=== PATIENT | female | born 1990 | race Caucasian/White ===

== ENCOUNTER 2020-09-18 06:35 | Outpatient (CLI) | payer OTHER, SELFPAY ==
--- NOTE | ~2020-09-18 | CT_ITS ---
EXAMINATION: CTA brain EXAM DATE: 09/18/2020 07:07 INDICATION: Migraine headaches. TECHNIQUE: Noncontrast head CT. Spiral CT angiogram cerebral arteries performed with intravenous in jection of 100 mL Omnipaque 350. Axial, coronal and sagittal images reviewed. Additional reformatted images created on dedicated 3-D workstation. The dose-length product (DLP) for this examination was 969.01 mGy-cm. The exposure was tailored according to patient size, and iterative reconstruction ( ASIR) was used as additional dose reduction technique. There is no prior study for comparison. FINDINGS: The vertebral arteries are codominant. Intracranial internal carotid arteries are normal. There is no distal carotid or vertebral basilar arterial dissection or fibromuscular dysplasia. Ther e are no cerebral artery aneurysms. There is symmetric cerebral artery arborization. The sagittal, tr ansverse and sigmoid sinuses enhance normally, no venous sinus thrombosis. Internal cerebral veins al so enhance normally. There is no acute intraparenchymal hemorrhage. No evidence of intraparenchymal brain mass lesion. N o evidence of acute infarction. There is no mass effect or midline shift. There is no obstructive hyd rocephalus suspected. There are no extra-axial collections. There are no calvarial acute fractures. IMPRESSION: Unremarkable CTA brain examination. Reviewed, dictated and finalized at location B. TER HELPER
== END 2020-09-18 06:36 | disposition home or self-care (01) ==
PROVIDERS: PCP Nurse Practitioner Family; Visit Provider Psychiatry & Neurology Neurology
DX: G43.909 Migraine, unspecified, not intractable, without status migrainosus (principal)
CPT/HCPCS: 70496; Q9967

== ENCOUNTER 2023-01-04 07:39 | Outpatient (CLI) | payer OTHER, SELFPAY ==
--- NOTE | ~2023-01-04 | XR_ITS ---
MODIFIED ESOPHAGRAM HISTORY: Dysphagia. TECHNIQUE: Modified barium esophagram was performed on 01/04/2023. I administered fluoroscopy and perf ormed the exam with speech pathologist. Patient was seated for lateral fluoroscopic imaging for ulises stion of thin liquids, pudding, solids and quantified amounts, followed by thin liquids in uncontroll ed amounts. This was recorded on tape. A single fluoroscopic spot image was also recorded. The DAP fo r this procedure was 0.343 Gycm2. The amount of fluoroscopy time used during this procedure was 0.5 m inutes. FINDINGS: Oral stage: Adequate function. Pharyngeal stage: Adequate function. Cervical/esophageal stage: Adequate function. IMPRESSION: Normal study. Patient tolerated regular consistency oral feedings in the upright position . Please correlate with speech pathologist findings and specific feeding recommendations. Reviewed, dictated and finalized at location A. UNITY ASSISTANT IMPRESSION: Normal study. Patient tolerated regular consistency oral feedings i n the upright position. Please correlate with speech pathologist findings and specific feeding recommendations.
--- NOTE | ~2023-01-04 | CT_ITS ---
EXAMINATION: CT sinus wo con DATE: 01/04/2023 08:00 INDICATION: Deviated nasal septum TECHNIQUE: Computed tomography (CT) of the paranasal sinuses was performed without intravenous contra st. The dose-length product was 309.35 mGy-cm. Automated exposure control and iterative reconstructio n technique were employed. COMPARISON: CT dated 09/18/2020 FINDINGS: The paranasal sinuses are pneumatized. No significant mucosal thickening or air-fluid level . Rightward nasal septal deviation. Ostiomeatal units are patent bilaterally. Mastoids are pneumatize d. IMPRESSION: 1. No significant paranasal sinus disease. Reviewed, dictated and finalized at location B. D SECURITY GUARD
--- NOTE | 2023-01-04 09:07 | REHSTMBS ---
Assessment and note entered by Anita Villalobos, [employer] Modified Barium Swallow Evaluation Feeding Type Recommended Oral Food Consistency Regular, Level 7 Liquid Consistency Thin (0) ST Clinical Summary MODIFIED BARIUM SWALLOW STUDY This patient was seen for a Modified Barium Swallow study at the request of her physician. Patient reports a history of sinus issues/drainage, asthma, and gastroesophageal reflux. She states that she has suffered from becoming choked on thin liquids for quite some time but worsened after an episode of COVID in 2020. She admits to even choking on her own saliva at times as well. Patient reports that she feels that pills can become hung up in her throat and that she has to wash them down with a lot of water. Patient also reported she is concerned about her voice as she has to cough and clear her throat frequently, and that she feels her throat is tight. Patient was presented with thin liquid per cup, puddig mixed with semi-solid contrast medium, and aubrie cracker pieces coated with the semi-solid mixture. She exhibited no signs of aspiration throughout. Patient did leave a small amount of residue on the tongue and varghese the valleculae after swallowing, triggering reflexive secondary swallows which cleared all of the material adequately. Results indicate this patient's swallowing skills are within normal limits She may remain on a Regular Diet and Regular Liquids. She was instructed in the use of head flexion, one sip at a time, and alternate liquids and solids to assist with pharyngeal clearing. No further Speech Therapy is indicated. Patient is referred back to her physician for further assessment of her complaints. Thank you for this referral.
== END 2023-01-04 07:40 | disposition home or self-care (01) ==
PROVIDERS: PCP Nurse Practitioner Family; Visit Provider Otolaryngology
DX: R13.10 Dysphagia, unspecified (principal); J34.2 Deviated nasal septum
CPT/HCPCS: 70486; 92611

== ENCOUNTER 2023-05-27 14:43 | Outpatient (CLI) | payer OTHER, SELFPAY ==
--- NOTE | ~2023-05-27 | CT_ITS ---
EXAMINATION: CT abdomen pelvis wo con DATE: 05/27/2023 15:10 INDICATION: Right flank pain TECHNIQUE: Computed tomography (CT) of the abdomen and pelvis was performed without intravenous contr ast. The dose-length product (DLP) was 362.47 mGy-cm. Automated exposure control and iterative recons truction technique were employed. COMPARISON: 08/13/2019 FINDINGS: The lung bases are clear. The heart size is normal. The liver, spleen, pancreas, gallbladde r, and adrenal glands are normal. The kidneys are unremarkable. No stones are identified in the kidne ys, ureters, or bladder. No hydronephrosis or hydroureter. No pathologically enlarged abdominal or pe lvic lymph nodes are identified. No free intraperitoneal gas or evidence of bowel obstruction. IMPRESSION: 1. No CT correlate for the patient's symptoms. Reviewed, dictated and finalized at location L.
== END 2023-05-27 14:44 | disposition home or self-care (01) ==
PROVIDERS: PCP Nurse Practitioner Family; Visit Provider Registered Nurse
DX: R10.9 Unspecified abdominal pain (principal)
CPT/HCPCS: 74176

== ENCOUNTER 2023-08-24 09:39 | Emergency (ER) | payer OTHER, SELFPAY ==
--- NOTE | ~2023-08-24 | XR_ITS ---
EXAMINATION: [id number] DATE: 08/24/2023 10:03 INDICATION: Right knee pain, sudden onset. TECHNIQUE: 2 views of right knee were obtained. COMPARISON: None. FINDINGS: Bone alignment is normal. No fracture. Joint spaces are normal. No knee joint effusion. IMPRESSION: 1. Normal right knee. Reviewed, dictated and finalized at location A. IMPRESSION: 1. Normal right knee.
[2023-08-24 09:40] VITALS: BP 156/89; PULSE 115; RESP 16; TEMP 36.4; O2SAT 100
--- NOTE | 2023-08-24 10:45 | ED.GENADULT ---
HPI - General Adult General Chief complaint: Extremity Injury, Lower Stated complaint: R knee pain Time Seen by Provider: 08/24/23 10:09 Source: patient Mode of arrival: ambulatory Limitations: no limitations History of Present Illness HPI narrative: This is a 33-year-old female who presents to the ED with chief complaint of right knee pain beginning 3 days ago. Patient reports that she was dancing on Wednesday night and then Wednesday the knee started to feel tight. Reports she has pain all throughout the knee and it is specifically worse with weightbearing, flexion and extension. Reports pain is mainly medial in nature. Mild relief with Tylenol. States she sometimes feels popping/clicking in the knee. Denies any numbness, weakness, further site of pain or injury. Related Data Home Medications Medication Instructions Recorded Confirmed fluticasone propionate 50 1 spray intranasal DAILY 11/16/19 11/16/19 mcg/actuation nasal spray,suspension (Flonase Allergy Relief) levonorgestrel 0.15 mg-ethinyl 1 tablet PO DAILY 11/16/19 11/16/19 estradiol 30 mcg tablets,3 mos pack(91) (Introvale) loratadine 10 mg tablet (Claritin) 10 mg PO DAILY 11/16/19 11/16/19 lorazepam 0.5 mg tablet (Ativan) 0.5 mg PO TID PRN Anxiety 11/16/19 11/16/19 montelukast 10 mg tablet 10 mg PO DAILY 11/16/19 11/16/19 (Singulair) lisdexamfetamine 50 mg capsule 50 mg PO DAILY 08/24/23 (Vyvanse) Allergies Allergy/AdvReac Type Severity Reaction Status Date / Time Penicillins Allergy Intermediate hives Verified 08/24/23 09:50 Review of Systems Review of Systems: All systems as dictated in [facility] Social History Social History Gender identity (if verbalized by the patient): Female Exam Narrative: GENERAL: Well-appearing, well-nourished, and in no acute distress. HEAD: Normocephalic, atraumatic. EYES: PERRLA and EOMI. ENT: Nares clear, no rhinorrhea or epistaxis. Mucous membranes moist. Oropharynx without tonsillar hypertrophy exudate or other lesions. NECK: Supple. No adenopathy or masses. CHEST: No respiratory distress. Clear to auscultation. No wheezes rales or rhonchi HEART: Regular rate and rhythm. No murmur heard. Normal peripheral pulses. ABDOMEN: Soft, nontender, nondistended, normal active bowel sounds. MSK: RLE: Right knee medial joint line and mild posterior tenderness. No deformity. No bruising. Full active and passive range of motion with pain. Neurovascularly intact distally. Soft compartments. No edema LLE: Benign SKIN: Warm, dry, no rash. NEURO: Alert and oriented x3. No focal deficits. PSYCH: Normal mood and affect. Course Vital Signs Vital signs: Vital Signs Temperature 97.6 F 08/24/23 09:40 Pulse Rate 115 H 08/24/23 09:40 Respiratory Rate 16 08/24/23 09:40 Blood Pressure 156/89 H 08/24/23 09:40 Pulse Oximetry 100 08/24/23 09:40 Oxygen Delivery Room Air 08/24/23 09:40 Temperature 97.6 F 08/24/23 09:40 Pulse Rate 115 H 08/24/23 09:40 Respiratory Rate 16 08/24/23 09:40 Blood Pressure 156/89 H 08/24/23 09:40 Pulse Oximetry 100 08/24/23 09:40 Oxygen Delivery Room Air 08/24/23 09:40 Medical Decision Making MDM Narrative Medical decision making narrative: This is a 33-year-old female who presents to the ED with chief complaint of right knee pain following injury that occurred 3 days ago. Vitals are normal. Exam reveals right knee tenderness medially and mild tenderness posteriorly. She has full range of motion. No warmth or any signs of infection. Low concern for DVT. Shared decision making to avoid ultrasound. X-rays of the right knee are negative. Her presentation is most consistent with soft tissue injury of the knee. Ortho referral given. Pt will be discharged in stable condition. Return precautions given and supportive measures discussed. Pt is understanding and agreeable with plan for discharge and follow-up with PCP. Vital
--- NOTE | 2023-08-24 11:00 | PC.NURSE ---
Pt refused knee immobilizer. States she has one at home. Requesting MRI, informed MRI is not an emergent test & need to be followed by . contact information given. Pt encouraged to follow up with him.
== END 2023-08-24 11:49 | disposition home or self-care (01) ==
PROVIDERS: Emergency Provider Physician Assistant; PCP Nurse Practitioner Family
DX: M25.561 Pain in right knee (principal)
CPT/HCPCS: 73560; 99283

== ENCOUNTER 2023-08-31 08:33 | Outpatient (CLI) | payer OTHER, SELFPAY ==
--- NOTE | ~2023-08-31 | MR_ITS ---
EXAMINATION: MR knee RT wo con DATE: 08/31/2023 09:33 INDICATION: Anterior cruciate ligament sprain. TECHNIQUE: Magnetic resonance imaging (MRI) of the right knee was performed without intravenous contr ast. Sequences included coronal PD-weighted FSE, coronal PD-weighted FS FSE, sagittal T2-weighted FS E, sagittal PD-weighted FS FSE and axial PD weighted fat saturated FSE. COMPARISON: None. FINDINGS: Medial compartment: Medial meniscus is normal. Articular cartilage is normal. Lateral compartment: Lateral meniscus is normal. Articular cartilage is normal. Patellofemoral compartment: Articular cartilage is normal. Ligaments and tendons: Anterior and posterior cruciate ligaments are normal. The medial collateral ligament and fibular kiera ateral ligament complex are normal. The extensor mechanism is normal. The visualized medial and later al hamstring tendons as well as the iliotibial band are normal. Fluid: Physiologic amount of fluid in the joint space. No loose osteochondral bodies identified. Osseous/other: Small bone island at the medial femoral condyle. Normal marrow signal. No fracture or pathologic dina ow replacing process. IMPRESSION: 1. Normal MRI of the right knee. Reviewed, dictated and finalized at location A.
== END 2023-08-31 08:34 | disposition home or self-care (01) ==
LOC: ANHIMG 08:39
PROVIDERS: PCP Nurse Practitioner Family; Visit Provider Orthopaedic Surgery
DX: S83.519A Sprain of anterior cruciate ligament of unspecified knee, initial encounter (principal); X58.XXXA Exposure to other specified factors, initial encounter
CPT/HCPCS: 73721